=== PATIENT | female | born 1930 | race African-American/Black ===

== ENCOUNTER 2017-04-21 10:29 | Inpatient (IN) | payer MEDICARE, MEDICAID ==
[~2017-04-21] VITALS: Ht 149.9 cm; Wt 45.4 kg
[~2017-04-21 10:29] MED LIST: AMLODIPINE BESYL5 MG ORAL; COLACE100 MG ORAL; CRANBERRY450 M4 PO; Cyproheptadine Hcl ORAL; DONEPEZIL PO; DULCOLAX10 MG RC; MILK OF MA400 MG/51 ORAL; NAMENDA10 MG ORAL
[2017-04-21] MEDS ORDERED: Pantoprazole Inj IV ONE (11:00)
[2017-04-21 11:34] LABS: BASOPHILS % (AUTO) 2.3 % (0.0-2.0); EOSINOPHILS % (AUTO) 4.4 % (0.0-3.0); HEMATOCRIT 41.6 % (37.0-47.0); HEMOGLOBIN 13.1 G/DL (12.0-16.0); LYMPHOCYTES % (AUTO) 38.3 % (20.0-45.0); MEAN CORPUSCULAR VOLUME 95 FL (80-99); MONOCYTES % (AUTO) 7.7 % (1.0-10.0); NEUTROPHILS % (AUTO) 47.3 % (45.0-75.0); PLATELET COUNT 266 K/UL (150-450); RED BLOOD COUNT 4.38 M/UL (4.20-5.40); RED CELL DISTRIBUTION WIDTH 12.9 % (11.6-14.8)
[2017-04-21 11:58] LABS: ANION GAP 5 mmol/L (5-15); BLOOD UREA NITROGEN 13 mg/dL (7-18); CALCIUM 8.1 MG/DL (8.5-10.1); CARBON DIOXIDE 32 MMOL/L (21-32); CHLORIDE 104 MMOL/L (98-107); CREATININE 0.7 MG/DL (0.55-1.30); SODIUM 141 MMOL/L (136-145)
[2017-04-21 12:02] LABS: ALANINE AMINOTRANSFERASE 18 U/L (12-78); ALBUMIN 3.5 G/DL (3.4-5.0); ALBUMIN/GLOBULIN RATIO 0.8 (1.0-2.7); ALKALINE PHOSPHATASE 112 U/L (46-116); ASPARTATE AMINO TRANSFERASE 33 U/L (15-37); BILIRUBIN,TOTAL 0.4 MG/DL (0.2-1.0)
[2017-04-21 12:05] VITALS: BP 115/78
--- NOTE | 2017-04-21 14:25 | Emergency Room Report ---
History of Present Illness General Chief Complaint: General Complaint Source: Patient, EMS Present Illness HPI 86-year-old female presents to ED for evaluation. Per EMS patient noted have blood in stool x1 day. Patient denies any abdominal pain. Denies any fevers chills. Denies chest pain or shortness of breath. No aggravating relieving factors. Denies any other associated symptoms Allergies: Coded Allergies: No Known Allergies (Verified , NONE, 09/19/05) Patient History Past Medical History: COPD Past Surgical History: none Pertinent Family History: none Social History: Denies: smoking, alcohol use, drug use Now: No Immunizations: UTD Reviewed Nursing Documentation: PMH: Agreed, PSxH: Agreed Nursing Documentation-PMH Hx COPD: Yes Hx Cancer: No Hx Neurological Problems: Yes Hx Dementia: Yes Hx Weakness: Yes Review of Systems All Other Systems: negative except mentioned in HPI Physical Exam Vital Signs Date Time Temp Pulse Resp B/P (MAP) Pulse Ox O2 Delivery O2 Flow Rate FiO2 04/21/17 10:30 97.2 73 20 115/78 96 Nasal Cannula 2.0 Sp02 EP Interpretation: reviewed, normal General Appearance: no apparent distress, alert, GCS 15, non-toxic Head: normocephalic, atraumatic Eyes: bilateral eye normal inspection, bilateral eye PERRL ENT: hearing grossly normal, normal pharynx, no angioedema, normal voice Neck: full range of motion, supple/symm/no masses Respiratory: chest non-tender, lungs clear, normal breath sounds, speaking full sentences Cardiovascular #1: regular rate, rhythm, no edema Cardiovascular #2: 2+ carotid (R), 2+ carotid (L), 2+ radial (R), 2+ radial (L) , 2+ dorsalis pedis (R), 2+ dorsalis pedis (L) Gastrointestinal: normal bowel sounds, non tender, soft, non-distended, no guarding, no rebound Rectal: deferred Genitourinary: normal inspection, no CVA tenderness Musculoskeletal: back normal, gait/station normal, normal range of motion, non- tender Neurologic: alert, oriented x3, responsive, motor strength/tone normal, sensory intact, speech normal Psychiatric: judgement/insight normal, memory normal, mood/affect normal, no suicidal/homicidal ideation Reflexes: 3+ bicep (R), 3+ bicep (L), 3+ tricep (R), 3+ tricep (L), 3+ knee (R) , 3+ knee (L) Skin: normal color, no rash, warm/dry, well hydrated Lymphatic: no adenopathy Medical Decision Making Diagnostic Impression: Primary Impression: LGI bleed ER Course Hospital Course 86-year-old F presents to ED with rectal bleeding Differential diagnoses include: UGIB, LGIB, hemorrhoids Clinical course Patient placed on stretcher. radiation monitor. After initial history and physical I ordered labs, IV fluids given protonix Labs - no leukocytosis, Hb/Hct stable. electrolytes ok. UA unremarkable Case discussed with Dr. Zamora and he agreed to accept the patient to his service for further care and support I feel this is a highly complex case requiring extensive working including EKG/ Rhythm strip, Xray/CT/US, Blood/urine lab work, repeat exams while in ED, and administration of strong opiates/narcotics for pain control, admission to hospital or close patient follow up. Diagnosis - LGIB Patient admitted to floor in serious condition Labs Test 04/21/17 11:17 White Blood Count 4.0 K/UL (4.8-10.8) Red Blood Count 4.38 M/UL (4.20-5.40) Hemoglobin 13.1 G/DL (12.0-16.0) Hematocrit 41.6 % (37.0-47.0) Mean Corpuscular Volume 95 FL (80-99) Mean Corpuscular Hemoglobin 29.9 PG (27.0-31.0) Mean Corpuscular Hemoglobin Concent 31.4 G/DL (32.0-36.0) Red Cell Distribution Width 12.9 % (11.6-14.8) Platelet Count 266 K/UL (150-450) Mean Platelet Volume 6.1 FL (6.5-10.1) Neutrophils (%) (Auto) 47.3 % (45.0-75.0) Lymphocytes (%) (Auto) 38.3 % (20.0-45.0) Monocytes (%) (Auto) 7.7 % (1.0-10.0) Eosinophils (%) (Auto) 4.4 % (0.0-3.0) Basophils (%) (Auto) 2.3 % (0.0-2.0) Prothrombin Time 10.7 SEC (9.30-11.50) Prothromb Time International Ratio 1.0 (0.9-1.1) Activated Partial Thromboplast Time 27 SEC (23-33) Sodium Level 141 MMOL/L (136-145) Potassium Level 4.0 MMOL/L (3.5-5.1) Chloride Level 104 MMOL/L (98-107) Carbon Dioxide Level 32 MMOL/L (21-32) Anion Gap 5 mmol/L (5-15) Blood Urea Nitrogen 13 mg/dL (7-18) Creatinine 0.7 MG/DL (0.55-1.30) Estimat Glomerular Filtration Rate mL/min (>60) Glucose Level 88 MG/DL (74-106) Calcium Level 8.1 MG/DL (8.5-10.1) Total Bilirubin 0.4 MG/DL (0.2-1.0) Aspartate Amino Transf (AST/SGOT) 33 U/L (15-37) Alanine Aminotransferase (ALT/SGPT) 18 U/L (12-78) Alkaline Phosphatase 112 U/L (46-116) Troponin I 0.009 ng/mL (0.000-0.056) Total Protein 8.1 G/DL (6.4-8.2) Albumin 3.5 G/DL (3.4-5.0) Globulin 4.6 g/dL Albumin/Globulin Ratio 0.8 (1.0-2.7) Lipase 345 U/L (73-393) EKG Diagnostic Results Rate: normal Rhythm: NSR ST Segments: no acute changes ASA given to the pt in ED: No Rhythm Strip Diag. Results EP Interpretation: yes Rhythm: NSR, no PVC's, no ectopy Last Vital Signs Date Time Temp Pulse Resp B/P (MAP) Pulse Ox O2 Delivery O2 Flow Rate FiO2 04/21/17 10:30 97.2 73 20 115/78 96 Nasal Cannula 2.0 Status: improved Condition: Serious Referrals: Kota Zamora MD (PCP) LAITH BLAIR M.D. Apr 21, 2017 14:25
[2017-04-21 16:31] VITALS: BP 157/81
--- NOTE | 2017-04-21 17:19 | GI Initial Consult Note ---
Didi Huizar N.PRic 04/21/17 1719: History of Present Illness General Date patient seen: Apr 21, 2017 Time patient seen: 11:00 Reason for Hospitalization: General Complaint Referring physician: AHSAN BO Reason for Consultation: LGIB Present Illness HPI 86-year-old female presents to ED for evaluation. Per EMS patient noted have blood in stool x1 day. Patient denies any abdominal pain. Denies any fevers chills. Denies chest pain or shortness of breath. No aggravating relieving factors. Denies any other associated symptoms. GI consulted for LGIB. HPI noted above. Pt seen in ED, awake A&O NAD with no active s/sx of N/V/D. Patient is unaware if she had any rectal bleeding. Denies any abdominal pain at this time. States she had a colonoscopy performed at [facility]. No other history could be obtained at this time. CBC, LFTs unremarkable. Home Meds Active Scripts [Cyproheptadine Hcl] 4 MG TAB No Conflict Check, 4 MG ORAL THREE TIMES A DAY, # 60 Prov:Augustine (Adrienne)Theodora CHARGE WEIGHER 08/18/15 Reported Medications Mirtazapine* (REMERON*) 15 Mg Tablet, 7.5 MG ORAL BEDTIME, TAB 04/21/17 [donapezil hcl] 5 TAB No Conflict Check, 5 MG PO DAILY 08/15/15 Memantine Hcl* (NAMENDA*) 10 Mg Tablet, 10 MG ORAL DAILY, TAB 08/15/15 Magnesium Hydroxide* (MILK OF MAGNESIA*) 400 Mg/5 Ml Oral.susp, 30 ML ORAL DAILY , ML 08/15/15 Cranberry Fruit Concentrate (CRANBERRY) 450 Mg Capsule, 450 MG PO, CAP 08/15/15 Docusate Sodium* (COLACE*) 100 Mg Capsule, 100 MG ORAL DAILY, CAP 08/15/15 Bisacodyl (DULCOLAX) 10 Mg Supp.rect, 10 MG RC, SUPP 08/15/15 Amlodipine Besylate* (AMLODIPINE BESYLATE*) 5 Mg Tablet, 5 MG ORAL DAILY, TAB 08/15/15 Med list reviewed/reconciled: Yes Allergies: Coded Allergies: No Known Allergies (Verified , NONE, 09/19/05) Patient History Limited by: medical condition History Provided By: Patient, Medical Record PMH Narrative Past Medical History: COPD Past Surgical History: none Pertinent Family History: none Social History: Denies: smoking, alcohol use, drug use Now: No Immunizations: UTD Reviewed Nursing Documentation: PMH: Agreed, PSxH: Agreed Nursing Documentation-PMH Hx COPD: Yes Hx Cancer: No Hx Neurological Problems: Yes Hx Dementia: Yes Hx Weakness: Yes Social History: Denies: smoking, alcohol use, drug use, other Review of Systems All Other Systems: negative except mentioned in HPI Physical Exam Vital Signs Date Time Temp Pulse Resp B/P (MAP) Pulse Ox O2 Delivery O2 Flow Rate FiO2 04/21/17 10:30 97.2 73 20 115/78 96 Nasal Cannula 2.0 Sp02 EP Interpretation: reviewed, normal Labs Laboratory Tests Test 04/21/17 11:17 White Blood Count 4.0 K/UL (4.8-10.8) L Red Blood Count 4.38 M/UL (4.20-5.40) Hemoglobin 13.1 G/DL (12.0-16.0) Hematocrit 41.6 % (37.0-47.0) Mean Corpuscular Volume 95 FL (80-99) Mean Corpuscular Hemoglobin 29.9 PG (27.0-31.0) Mean Corpuscular Hemoglobin Concent 31.4 G/DL (32.0-36.0) L Red Cell Distribution Width 12.9 % (11.6-14.8) Platelet Count 266 K/UL (150-450) Mean Platelet Volume 6.1 FL (6.5-10.1) L Neutrophils (%) (Auto) 47.3 % (45.0-75.0) Lymphocytes (%) (Auto) 38.3 % (20.0-45.0) Monocytes (%) (Auto) 7.7 % (1.0-10.0) Eosinophils (%) (Auto) 4.4 % (0.0-3.0) H Basophils (%) (Auto) 2.3 % (0.0-2.0) H Prothrombin Time 10.7 SEC (9.30-11.50) Prothromb Time International Ratio 1.0 (0.9-1.1) Activated Partial Thromboplast Time 27 SEC (23-33) Sodium Level 141 MMOL/L (136-145) Potassium Level 4.0 MMOL/L (3.5-5.1) Chloride Level 104 MMOL/L (98-107) Carbon Dioxide Level 32 MMOL/L (21-32) Anion Gap 5 mmol/L (5-15) Blood Urea Nitrogen 13 mg/dL (7-18) Creatinine 0.7 MG/DL (0.55-1.30) Estimat Glomerular Filtration Rate mL/min (>60) Glucose Level 88 MG/DL (74-106) Calcium Level 8.1 MG/DL (8.5-10.1) L Total Bilirubin 0.4 MG/DL (0.2-1.0) Aspartate Amino Transf (AST/SGOT) 33 U/L (15-37) Alanine Aminotransferase (ALT/SGPT) 18 U/L (12-78) Alkaline Phosphatase 112 U/L (46-116) Troponin I 0.009 ng/mL (0.000-0.056) Total Protein 8.1 G/DL (6.4-8.2) Albumin 3.5 G/DL (3.4-5.0) Globulin 4.6 g/dL Albumin/Globulin Ratio 0.8 (1.0-2.7) L Lipase 345 U/L (73-393) General Appearance: well appearing, no apparent distress, alert, thin Head: normocephalic EENT: PERRL/EOMI, normal ENT inspection Neck: supple Respiratory: normal breath sounds, no respiratory distress Cardiovascular: normal rate Gastrointestinal: normal inspection, non tender, soft, normal bowel sounds, non -distended Genitourinary: no CVA tenderness Musculoskeletal: normal inspection, back normal Neurologic: normal inspection, alert, responsive Skin: normal inspection, normal color, no rash, warm/dry, palpation normal, well hydrated Lymphatic: normal inspection, no adenopathy GI: Plan Problems: (1) LGI bleed (2) Severe protein-calorie malnutrition (3) Dehydration (4) Episode of generalized weakness Plan defer GI procedures at this time stable H&H, prn transfusions OB stool r/o GI bleed start bowel regime >> colace + miralax anusol HC prn ok to advance diet electrolyte correction H2B prophylaxis fu labs Discussed with Dr. Patel. Thank you for this patient referral, we will follow. DE PATEL 04/22/17 1152: History of Present Illness General Reason for Hospitalization: General Complaint Present Illness Home Meds Active Scripts [Cyproheptadine Hcl] 4 MG TAB No Conflict Check, 4 MG ORAL THREE TIMES A DAY, # 60 Prov:Augustine (Adrienne)Theodora CHARGE WEIGHER 08/18/15 Reported Medications Mirtazapine* (REMERON*) 15 Mg Tablet, 7.5 MG ORAL BEDTIME, TAB 04/21/17 [donapezil hcl] 5 TAB No Conflict Check, 5 MG PO DAILY 08/15/15 Memantine Hcl* (NAMENDA*) 10 Mg Tablet, 10 MG ORAL DAILY, TAB 08/15/15 Magnesium Hydroxide* (MILK OF MAGNESIA*) 400 Mg/5 Ml Oral.susp, 30 ML ORAL DAILY , ML 08/15/15 Cranberry Fruit Concentrate (CRANBERRY) 450 Mg Capsule, 450 MG PO, CAP 08/15/15 Docusate Sodium* (COLACE*) 100 Mg Capsule, 100 MG ORAL DAILY, CAP 08/15/15 Bisacodyl (DULCOLAX) 10 Mg Supp.rect, 10 MG RC, SUPP 08/15/15 Amlodipine Besylate* (AMLODIPINE BESYLATE*) 5 Mg Tablet, 5 MG ORAL DAILY, TAB 08/15/15 Allergies: Coded Allergies: No Known Allergies (Verified , NONE, 09/19/05) GI: Plan Plan The patient was seen and examined at bedside and all new and available data was reviewed in the patients chart. I agree with the above findings, impression and plan. (Patient seen earlier today. Signature stamp does not reflect patient encounter time.). - MD Gaye [facility] N.PRic Apr 21, 2017 17:19 DE PATEL Apr 22, 2017 11:52
[2017-04-21] MEDS ORDERED: MIRTAZAPINE15 MG ORAL (17:49)
[2017-04-21] MEDS ORDERED: NAMENDA10 MG ORAL (17:49)
[2017-04-21] MEDS: Docusate 100mg cap ORAL SCH (18:49)
[2017-04-21 20:00] VITALS: BP 145/78
[2017-04-21] MEDS: Miralax 17gm pkt ORAL SCH (21:00)
[2017-04-21] MEDS: Donepezil 5mg Tab ORAL SCH (21:00)
[2017-04-22] VITALS: BP 139/83
[2017-04-22 04:00] VITALS: BP 155/94
[2017-04-22 07:31] LABS: ANION GAP 5 mmol/L (5-15); BLOOD UREA NITROGEN 11 mg/dL (7-18); CALCIUM 8.3 MG/DL (8.5-10.1); CARBON DIOXIDE 33 MMOL/L (21-32); CHLORIDE 106 MMOL/L (98-107); CREATININE 0.7 MG/DL (0.55-1.30); POTASSIUM 3.9 MMOL/L (3.5-5.1); SODIUM 144 MMOL/L (136-145)
[2017-04-22 07:57] LABS: BASOPHILS % (AUTO) 2.1 % (0.0-2.0); HEMATOCRIT 42.5 % (37.0-47.0); HEMOGLOBIN 13.3 G/DL (12.0-16.0); MEAN CORPUSCULAR VOLUME 96 FL (80-99); MONOCYTES % (AUTO) 10.4 % (1.0-10.0); NEUTROPHILS % (AUTO) 27.6 % (45.0-75.0); PLATELET COUNT 278 K/UL (150-450); RED BLOOD COUNT 4.43 M/UL (4.20-5.40); RED CELL DISTRIBUTION WIDTH 13.1 % (11.6-14.8); WHITE BLOOD COUNT 3.9 K/UL (4.8-10.8)
[2017-04-22 08:00] VITALS: BP 156/82
[2017-04-22] MEDS: Milk of Magnesia 30ml Ud ORAL SCH (08:49)
[2017-04-22] MEDS: Docusate 100mg cap ORAL SCH ×3 (08:49→17:08)
[2017-04-22] MEDS: Memantine 10mg tab ORAL SCH (08:49)
[2017-04-22] MEDS ORDERED: Docusate 100mg cap ORAL SCH (09:00)
[2017-04-22 11:53] VITALS: BP 129/71
--- NOTE | 2017-04-22 14:44 | GI Progress Note ---
Assessment/Plan Problems: (1) Episode of generalized weakness ICD Codes: R53.1 - Weakness SNOMED: 47872608 (2) Severe protein-calorie malnutrition ICD Codes: E43 - Unspecified severe protein-calorie malnutrition SNOMED: 031865173 (3) Dehydration ICD Codes: E86.0 - Dehydration SNOMED: 93934558 (4) At high risk for aspiration ICD Codes: Z91.89 - Other specified personal risk factors, not elsewhere classified SNOMED: 992797582 (5) Frailty ICD Codes: R54 - Age-related physical debility SNOMED: 061792273 Status: stable Status Narrative Discussed with Dr. Liu. Assessment/Plan defer GI procedures at this time stable H&H, prn transfusions OB stool r/o GI bleed start bowel regime >> colace + miralax anusol HC prn ok to advance diet electrolyte correction H2B prophylaxis OT evaluation fu labs The patient was seen and examined at bedside and all new and available data was reviewed in the patients chart. I agree with the above findings, impression and plan. (Patient seen earlier today. Signature stamp does not reflect patient encounter time.). - Juli Liu MD Subjective Gastrointestinal/Abdominal: Reports: no symptoms Subjective no rectal bleeding noted Objective Last 24 Hour Vital Signs Date Time Temp Pulse Resp B/P (MAP) Pulse Ox O2 Delivery O2 Flow Rate FiO2 04/22/17 11:53 97.6 87 19 129/71 100 04/22/17 08:50 105 156/82 04/22/17 08:00 97.9 105 20 156/82 95 04/22/17 04:00 97.5 81 20 155/94 99 04/22/17 00:00 97.2 72 20 139/83 100 04/21/17 20:00 97.3 83 19 145/78 98 04/21/17 16:31 97.5 88 21 157/81 98 04/21/17 16:15 97.2 20 115/78 96 Nasal Cannula 2.0 Intake and Output 04/21/17 04/22/17 19:00 07:00 Intake Total 0 ml 780 ml Balance 0 ml 780 ml Intake Oral 0 ml IV Total 780 ml # Voids 1 Laboratory Tests Test 04/22/17 06:10 White Blood Count 3.9 K/UL (4.8-10.8) L Red Blood Count 4.43 M/UL (4.20-5.40) Hemoglobin 13.3 G/DL (12.0-16.0) Hematocrit 42.5 % (37.0-47.0) Mean Corpuscular Volume 96 FL (80-99) Mean Corpuscular Hemoglobin 30.0 PG (27.0-31.0) Mean Corpuscular Hemoglobin Concent 31.3 G/DL (32.0-36.0) L Red Cell Distribution Width 13.1 % (11.6-14.8) Platelet Count 278 K/UL (150-450) Mean Platelet Volume 5.9 FL (6.5-10.1) L Neutrophils (%) (Auto) 27.6 % (45.0-75.0) L Lymphocytes (%) (Auto) 54.0 % (20.0-45.0) H Monocytes (%) (Auto) 10.4 % (1.0-10.0) H Eosinophils (%) (Auto) 6.0 % (0.0-3.0) H Basophils (%) (Auto) 2.1 % (0.0-2.0) H Sodium Level 144 MMOL/L (136-145) Potassium Level 3.9 MMOL/L (3.5-5.1) Chloride Level 106 MMOL/L (98-107) Carbon Dioxide Level 33 MMOL/L (21-32) H Anion Gap 5 mmol/L (5-15) Blood Urea Nitrogen 11 mg/dL (7-18) Creatinine 0.7 MG/DL (0.55-1.30) Estimat Glomerular Filtration Rate mL/min (>60) Glucose Level 91 MG/DL (74-106) Calcium Level 8.3 MG/DL (8.5-10.1) L Height (Feet): 4 Height (Inches): 11.00 Weight (Pounds): 100 General Appearance: WD/WN, no apparent distress, alert, thin Cardiovascular: normal rate Respiratory/Chest: normal breath sounds, no respiratory distress Abdominal Exam: normal bowel sounds, non tender, soft Extremities: normal range of motion, non-tender Didi Huizar N.P. Apr 22, 2017 14:44 DE LIU Apr 24, 2017 07:20
[2017-04-22 15:55] VITALS: BP 150/86
--- NOTE | 2017-04-22 17:57 | Cardiology Report ---
APPROVED REPORT EKG Measurement Heart [id number] Normal sinus rhythm Left axis deviation Right bundle branch block Abnormal ECG
[2017-04-22 19:44] VITALS: BP 91/70
[2017-04-22] MEDS: Donepezil 5mg Tab ORAL SCH (20:20)
[2017-04-22] MEDS: Miralax 17gm pkt ORAL SCH (20:21)
--- NOTE | 2017-04-22 20:58 | General Progress Note ---
Assessment/Plan Problem List: (1) LGI bleed ICD Codes: K92.2 - Gastrointestinal hemorrhage, unspecified SNOMED: 47549962 (2) Frailty ICD Codes: R54 - Age-related physical debility SNOMED: 635168392 (3) Episode of generalized weakness ICD Codes: R53.1 - Weakness SNOMED: 25858514 (4) Severe protein-calorie malnutrition ICD Codes: E43 - Unspecified severe protein-calorie malnutrition SNOMED: 495894278 Status: progressing Assessment/Plan gi bleeding stable h/h endoscopy per gi moniter for bleeding Subjective ROS Limited/Unobtainable: Yes Allergies: Coded Allergies: No Known Allergies (Verified , NONE, 09/19/05) Objective Last 24 Hour Vital Signs Date Time Temp Pulse Resp B/P (MAP) Pulse Ox O2 Delivery O2 Flow Rate FiO2 04/22/17 19:44 97.5 67 19 91/70 98 Room Air 04/22/17 15:55 97.9 86 19 150/86 99 04/22/17 11:53 97.6 87 19 129/71 100 04/22/17 08:50 105 156/82 04/22/17 08:00 97.9 105 20 156/82 95 04/22/17 04:00 97.5 81 20 155/94 99 04/22/17 00:00 97.2 72 20 139/83 100 Intake and Output 04/21/17 04/22/17 19:00 07:00 Intake Total 0 ml 780 ml Balance 0 ml 780 ml Intake Oral 0 ml IV Total 780 ml # Voids 1 Laboratory Tests 04/22/17 06:10: White Blood Count 3.9L, Red Blood Count 4.43, Hemoglobin 13.3, Hematocrit 42.5, Mean Corpuscular Volume 96, Mean Corpuscular Hemoglobin 30.0, Mean Corpuscular Hemoglobin Concent 31.3L, Red Cell Distribution Width 13.1, Platelet Count 278, Mean Platelet Volume 5.9L, Neutrophils (%) (Auto) 27.6L, Lymphocytes (%) (Auto) 54.0H, Monocytes (%) (Auto) 10.4H, Eosinophils (%) (Auto) 6.0H, Basophils (%) ( Auto) 2.1H, Sodium Level 144, Potassium Level 3.9, Chloride Level 106, Carbon Dioxide Level 33H, Anion Gap 5, Blood Urea Nitrogen 11, Creatinine 0.7, Estimat Glomerular Filtration Rate , Glucose Level 91, Calcium Level 8.3L Height (Feet): 4 Height (Inches): 11.00 Weight (Pounds): 100 Respiratory/Chest: lungs clear Abdomen: soft Kota Zamora MD Apr 22, 2017 20:58
[2017-04-23] VITALS (7 sets, daily range): BP systolic 118–164; BP diastolic 60–110
[2017-04-23 07:24] LABS: BASOPHILS % (AUTO) 2.1 % (0.0-2.0); EOSINOPHILS % (AUTO) 7.9 % (0.0-3.0); HEMATOCRIT 36.6 % (37.0-47.0); HEMOGLOBIN 11.3 G/DL (12.0-16.0); LYMPHOCYTES % (AUTO) 49.5 % (20.0-45.0); MEAN CORPUSCULAR VOLUME 96 FL (80-99); MONOCYTES % (AUTO) 14.6 % (1.0-10.0); NEUTROPHILS % (AUTO) 25.9 % (45.0-75.0); PLATELET COUNT 229 K/UL (150-450); RED BLOOD COUNT 3.83 M/UL (4.20-5.40); RED CELL DISTRIBUTION WIDTH 13.1 % (11.6-14.8); WHITE BLOOD COUNT 3.7 K/UL (4.8-10.8)
[2017-04-23 07:33] LABS: ANION GAP 3 mmol/L (5-15); BLOOD UREA NITROGEN 13 mg/dL (7-18); CALCIUM 8.9 MG/DL (8.5-10.1); CARBON DIOXIDE 34 MMOL/L (21-32); CHLORIDE 107 MMOL/L (98-107); CREATININE 0.7 MG/DL (0.55-1.30); POTASSIUM 4.4 MMOL/L (3.5-5.1); SODIUM 144 MMOL/L (136-145)
[2017-04-23] MEDS: Docusate 100mg cap ORAL SCH ×3 (08:47→17:12)
[2017-04-23] MEDS: Memantine 10mg tab ORAL SCH (08:48)
[2017-04-23] MEDS: Milk of Magnesia 30ml Ud ORAL SCH (09:03)
--- NOTE | 2017-04-23 09:42 | History and Physical Report ---
DATE OF ADMISSION: 04/21/2017 NOTE: POOR AUDIO HISTORY OF PRESENT ILLNESS: The patient is admitted for rectal bleeding and history of . The patient is a poor historian and has advanced dementia. abdominal pain. Denies nausea, vomiting . Denies shortness of breath. Denies cough. Denies chills. PAST MEDICAL HISTORY: Dementia, hypertension, leg edema, constipation, mood disorder, . PAST SURGICAL HISTORY: . MEDICATIONS: , Colace, Namenda, mirtazapine, and temazepam. FAMILY HISTORY: Noncontributory. SOCIAL HISTORY: Denies history of smoking, alcohol, or illicit drugs. REVIEW OF SYSTEMS: HEENT: Denies headaches. RESPIRATORY: Denies shortness of breath. Denies cough. CARDIOVASCULAR: Denies chest pain. GASTROINTESTINAL: Denies nausea, vomiting, or diarrhea. EXTREMITIES: Denies , however, she is a very poor historian, cannot history. CENTRAL NERVOUS SYSTEM: No change in vision or speech pattern. PHYSICAL EXAMINATION: VITAL SIGNS: Basically, temperature is 97.2, pulse is 73, and blood pressure 116/78. HEENT: PERRLA. NECK: Supple. No lymphadenopathy. CHEST: Clear to auscultation. GASTROINTESTINAL: Soft, nontender, and nondistended. No organomegaly. EXTREMITIES: No edema. Moves all four extremities. NEUROLOGIC: Sensory is intact to light touch. Reflexes are equal on both sides. LABORATORY DATA: WBC of 4, hemoglobin of 13.1, and platelets 266. Sodium 141, potassium 4, BUN of 13, and creatinine 0.7. ASSESSMENT AND PLAN: Upper gastrointestinal bleeding. I have asked Dr. Liu to see the patient for the above-mentioned diagnosis and treatment. I have asked mild dehydration treatment. Kota Zamora M.D. DR: LUIS JOB#: [id number] CC:
--- NOTE | 2017-04-23 14:30 | GI Progress Note ---
Assessment/Plan Problems: (1) Episode of generalized weakness ICD Codes: R53.1 - Weakness SNOMED: 67587161 (2) Severe protein-calorie malnutrition ICD Codes: E43 - Unspecified severe protein-calorie malnutrition SNOMED: 052675114 (3) Dehydration ICD Codes: E86.0 - Dehydration SNOMED: 68579899 (4) At high risk for aspiration ICD Codes: Z91.89 - Other specified personal risk factors, not elsewhere classified SNOMED: 933603488 (5) Frailty ICD Codes: R54 - Age-related physical debility SNOMED: 063738884 Status: stable Status Narrative Discussed with Dr. Liu. Assessment/Plan defer GI procedures at this time stable H&H, prn transfusions OB stool r/o GI bleed start bowel regime >> colace + miralax anusol HC prn ok to advance diet electrolyte correction H2B prophylaxis PT/OT evaluation fu labs The patient was seen and examined at bedside and all new and available data was reviewed in the patients chart. I agree with the above findings, impression and plan. (Patient seen earlier today. Signature stamp does not reflect patient encounter time.). - Juli Liu MD Subjective Subjective no rectal bleeding noted Objective Last 24 Hour Vital Signs Date Time Temp Pulse Resp B/P (MAP) Pulse Ox O2 Delivery O2 Flow Rate FiO2 04/23/17 12:00 95.5 62 18 127/62 93 04/23/17 08:48 72 131/79 04/23/17 08:00 95.7 69 18 135/60 93 04/23/17 04:10 149/83 Nasal Cannula 2.0 04/23/17 03:38 98.1 70 18 164/110 90 Nasal Cannula 04/23/17 00:00 Nasal Cannula 2.0 04/23/17 00:00 97.9 64 18 140/63 98 04/22/17 20:00 Nasal Cannula 2.0 04/22/17 19:44 97.5 67 19 91/70 98 Room Air 04/22/17 15:55 97.9 86 19 150/86 99 Intake and Output 04/22/17 04/23/17 19:00 07:00 Intake Total 755 ml 650 ml Balance 755 ml 650 ml Intake Oral 690 ml IV Total 65 ml 650 ml # Voids 3 1 # Bowel Movements 1 Laboratory Tests Test 04/23/17 05:05 White Blood Count 3.7 K/UL (4.8-10.8) L Red Blood Count 3.83 M/UL (4.20-5.40) L Hemoglobin 11.3 G/DL (12.0-16.0) L Hematocrit 36.6 % (37.0-47.0) L Mean Corpuscular Volume 96 FL (80-99) Mean Corpuscular Hemoglobin 29.6 PG (27.0-31.0) Mean Corpuscular Hemoglobin Concent 31.0 G/DL (32.0-36.0) L Red Cell Distribution Width 13.1 % (11.6-14.8) Platelet Count 229 K/UL (150-450) Mean Platelet Volume 6.0 FL (6.5-10.1) L Neutrophils (%) (Auto) 25.9 % (45.0-75.0) L Lymphocytes (%) (Auto) 49.5 % (20.0-45.0) H Monocytes (%) (Auto) 14.6 % (1.0-10.0) H Eosinophils (%) (Auto) 7.9 % (0.0-3.0) H Basophils (%) (Auto) 2.1 % (0.0-2.0) H Sodium Level 144 MMOL/L (136-145) Potassium Level 4.4 MMOL/L (3.5-5.1) Chloride Level 107 MMOL/L (98-107) Carbon Dioxide Level 34 MMOL/L (21-32) H Anion Gap 3 mmol/L (5-15) L Blood Urea Nitrogen 13 mg/dL (7-18) Creatinine 0.7 MG/DL (0.55-1.30) Estimat Glomerular Filtration Rate mL/min (>60) Glucose Level 79 MG/DL (74-106) Calcium Level 8.9 MG/DL (8.5-10.1) Height (Feet): 4 Height (Inches): 11.00 Weight (Pounds): 100 General Appearance: no apparent distress, alert, thin Cardiovascular: normal rate Respiratory/Chest: normal breath sounds, no respiratory distress Abdominal Exam: normal bowel sounds, non tender, soft Didi Huizar N.PRic Apr 23, 2017 14:29 DE LIU Apr 24, 2017 07:53
[2017-04-23] MEDS ORDERED: 1/2 NS 1000ml IV ONE (15:29)
--- NOTE | 2017-04-23 20:43 | General Progress Note ---
Assessment/Plan Problem List: (1) LGI bleed ICD Codes: K92.2 - Gastrointestinal hemorrhage, unspecified SNOMED: 43244930 (2) Frailty ICD Codes: R54 - Age-related physical debility SNOMED: 867315916 (3) Episode of generalized weakness ICD Codes: R53.1 - Weakness SNOMED: 18947743 (4) Severe protein-calorie malnutrition ICD Codes: E43 - Unspecified severe protein-calorie malnutrition SNOMED: 316195173 Status: progressing Assessment/Plan gi bleeding stable h/h afebrile will discuss w gi re findings Subjective ROS Limited/Unobtainable: Yes Allergies: Coded Allergies: No Known Allergies (Verified , NONE, 09/19/05) Objective Last 24 Hour Vital Signs Date Time Temp Pulse Resp B/P (MAP) Pulse Ox O2 Delivery O2 Flow Rate FiO2 04/23/17 16:00 96.6 81 18 118/73 91 04/23/17 12:00 95.5 62 18 127/62 93 04/23/17 08:48 72 131/79 04/23/17 08:00 95.7 69 18 135/60 93 04/23/17 04:10 149/83 Nasal Cannula 2.0 04/23/17 03:38 98.1 70 18 164/110 90 Nasal Cannula 04/23/17 00:00 Nasal Cannula 2.0 04/23/17 00:00 97.9 64 18 140/63 98 Intake and Output 04/22/17 04/23/17 19:00 07:00 Intake Total 755 ml 715 ml Balance 755 ml 715 ml Intake Oral 690 ml IV Total 65 ml 715 ml # Voids 3 1 # Bowel Movements 1 Laboratory Tests 04/23/17 05:05: White Blood Count 3.7L, Red Blood Count 3.83L, Hemoglobin 11.3L, Hematocrit 36.6L, Mean Corpuscular Volume 96, Mean Corpuscular Hemoglobin 29.6, Mean Corpuscular Hemoglobin Concent 31.0L, Red Cell Distribution Width 13.1, Platelet Count 229, Mean Platelet Volume 6.0L, Neutrophils (%) (Auto) 25.9L, Lymphocytes (%) (Auto) 49.5H, Monocytes (%) (Auto) 14.6H, Eosinophils (%) (Auto ) 7.9H, Basophils (%) (Auto) 2.1H, Sodium Level 144, Potassium Level 4.4, Chloride Level 107, Carbon Dioxide Level 34H, Anion Gap 3L, Blood Urea Nitrogen 13, Creatinine 0.7, Estimat Glomerular Filtration Rate , Glucose Level 79, Calcium Level 8.9 Height (Feet): 4 Height (Inches): 11.00 Weight (Pounds): 100 Cardiovascular: regular rhythm Respiratory/Chest: normal breath sounds Kota Zamora MD Apr 23, 2017 20:43
[2017-04-23] MEDS: Miralax 17gm pkt ORAL SCH (21:00)
[2017-04-23] MEDS: Donepezil 5mg Tab ORAL SCH (21:32)
[2017-04-24] VITALS: BP 120/48
[2017-04-24 04:00] VITALS: BP 155/74
[2017-04-24 07:32] LABS: BASOPHILS % (AUTO) 2.5 % (0.0-2.0); EOSINOPHILS % (AUTO) 0.8 % (0.0-3.0); HEMATOCRIT 38.1 % (37.0-47.0); HEMOGLOBIN 12.2 G/DL (12.0-16.0); LYMPHOCYTES % (AUTO) 30.7 % (20.0-45.0); MEAN CORPUSCULAR VOLUME 94 FL (80-99); MONOCYTES % (AUTO) 7.8 % (1.0-10.0); NEUTROPHILS % (AUTO) 58.3 % (45.0-75.0); PLATELET COUNT 268 K/UL (150-450); RED BLOOD COUNT 4.03 M/UL (4.20-5.40); WHITE BLOOD COUNT 3.7 K/UL (4.8-10.8)
[2017-04-24 08:00] LABS: ANION GAP 11 mmol/L (5-15); BLOOD UREA NITROGEN 13 mg/dL (7-18); CALCIUM 9.3 MG/DL (8.5-10.1); CARBON DIOXIDE 30 MMOL/L (21-32); CHLORIDE 102 MMOL/L (98-107); CREATININE 0.8 MG/DL (0.55-1.30); POTASSIUM 3.4 MMOL/L (3.5-5.1); SODIUM 143 MMOL/L (136-145)
[2017-04-24] MEDS: Memantine 10mg tab ORAL SCH (08:08)
[2017-04-24] MEDS: Milk of Magnesia 30ml Ud ORAL SCH (08:08)
[2017-04-24 08:09] VITALS: BP 116/59
[2017-04-24] MEDS: Docusate 100mg cap ORAL SCH ×3 (08:09→17:55)
--- NOTE | 2017-04-24 11:34 | Consultation ---
Consult Note Consult Note asked to see for electrolyte imbalance 86-year-old female presents to ED for evaluation. Per EMS patient noted have blood in stool x1 day. Patient denies any abdominal pain. Denies any fevers chills. Denies chest pain or shortness of breath. No aggravating relieving factors. Denies any other associated symptoms Past Medical History: COPD Hx COPD: Yes Hx Neurological Problems: Yes Hx Dementia: Yes Hx Weakness: Yes Assessment/Plan Low K GI Bleed- H&H stable Malnutrition Dehydration HTN Plan: K Supplement DC IV Monitor H&H DC planning MARIANA YODER Apr 24, 2017 11:34
[2017-04-24 12:00] VITALS: BP 148/95
--- NOTE | 2017-04-24 14:14 | GI Progress Note ---
Assessment/Plan Problems: (1) Episode of generalized weakness ICD Codes: R53.1 - Weakness SNOMED: 10991953 (2) Severe protein-calorie malnutrition ICD Codes: E43 - Unspecified severe protein-calorie malnutrition SNOMED: 227231949 (3) Dehydration ICD Codes: E86.0 - Dehydration SNOMED: 92710988 (4) At high risk for aspiration ICD Codes: Z91.89 - Other specified personal risk factors, not elsewhere classified SNOMED: 123985944 (5) Frailty ICD Codes: R54 - Age-related physical debility SNOMED: 752635248 Status: stable Status Narrative Discussed with Dr. Liu. Assessment/Plan Had BM yesterday, no blood noted per RN report defer GI procedures at this time stable H&H OB stool r/o GI bleed start bowel regime >> colace + miralax anusol HC prn ok to advance diet electrolyte correction H2B prophylaxis PT/OT evaluation fu labs dc planning The patient was seen and examined at bedside and all new and available data was reviewed in the patients chart. I agree with the above findings, impression and plan. (Patient seen earlier today. Signature stamp does not reflect patient encounter time.). - Juli Liu MD Subjective Subjective no rectal bleeding noted Objective Last 24 Hour Vital Signs Date Time Temp Pulse Resp B/P (MAP) Pulse Ox O2 Delivery O2 Flow Rate FiO2 04/24/17 08:09 97.9 74 20 116/59 95 04/24/17 08:08 74 116/59 04/24/17 04:00 97.0 94 20 155/74 96 04/24/17 00:00 97.0 98 20 120/48 95 Room Air 04/23/17 20:00 97.0 104 20 143/74 95 Room Air 04/23/17 16:00 96.6 81 18 118/73 91 Intake and Output 04/23/17 04/24/17 19:00 07:00 Intake Total 1015 ml 715 ml Balance 1015 ml 715 ml Intake Oral 430 ml IV Total 585 ml 715 ml # Voids 2 5 # Bowel Movements 3 Laboratory Tests Test 04/24/17 06:20 White Blood Count 3.7 K/UL (4.8-10.8) L Red Blood Count 4.03 M/UL (4.20-5.40) L Hemoglobin 12.2 G/DL (12.0-16.0) Hematocrit 38.1 % (37.0-47.0) Mean Corpuscular Volume 94 FL (80-99) Mean Corpuscular Hemoglobin 30.1 PG (27.0-31.0) Mean Corpuscular Hemoglobin Concent 31.9 G/DL (32.0-36.0) L Red Cell Distribution Width 13.0 % (11.6-14.8) Platelet Count 268 K/UL (150-450) Mean Platelet Volume 5.7 FL (6.5-10.1) L Neutrophils (%) (Auto) 58.3 % (45.0-75.0) Lymphocytes (%) (Auto) 30.7 % (20.0-45.0) Monocytes (%) (Auto) 7.8 % (1.0-10.0) Eosinophils (%) (Auto) 0.8 % (0.0-3.0) Basophils (%) (Auto) 2.5 % (0.0-2.0) H Sodium Level 143 MMOL/L (136-145) Potassium Level 3.4 MMOL/L (3.5-5.1) L Chloride Level 102 MMOL/L (98-107) Carbon Dioxide Level 30 MMOL/L (21-32) Anion Gap 11 mmol/L (5-15) Blood Urea Nitrogen 13 mg/dL (7-18) Creatinine 0.8 MG/DL (0.55-1.30) Estimat Glomerular Filtration Rate mL/min (>60) Glucose Level 137 MG/DL (74-106) H Calcium Level 9.3 MG/DL (8.5-10.1) Height (Feet): 4 Height (Inches): 11.00 Weight (Pounds): 100 General Appearance: WD/WN, no apparent distress, alert, thin Cardiovascular: normal rate Respiratory/Chest: normal breath sounds, no respiratory distress Abdominal Exam: normal bowel sounds, non tender, soft Extremities: normal range of motion, non-tender Didi Huizar N.PRic Apr 24, 2017 14:14 DE LIU Apr 25, 2017 12:06
[2017-04-24 16:00] VITALS: BP 119/59
--- NOTE | 2017-04-24 19:49 | General Progress Note ---
Assessment/Plan Problem List: (1) LGI bleed ICD Codes: K92.2 - Gastrointestinal hemorrhage, unspecified SNOMED: 26043575 (2) Frailty ICD Codes: R54 - Age-related physical debility SNOMED: 225900356 (3) Episode of generalized weakness ICD Codes: R53.1 - Weakness SNOMED: 68372254 (4) Severe protein-calorie malnutrition ICD Codes: E43 - Unspecified severe protein-calorie malnutrition SNOMED: 069781086 Status: progressing Assessment/Plan no gi bleeding stable h/h dc in am to snf Subjective ROS Limited/Unobtainable: Yes Allergies: Coded Allergies: No Known Allergies (Verified , NONE, 09/19/05) Objective Last 24 Hour Vital Signs Date Time Temp Pulse Resp B/P (MAP) Pulse Ox O2 Delivery O2 Flow Rate FiO2 04/24/17 16:00 98.0 93 20 119/59 96 Nasal Cannula 2.0 04/24/17 12:00 97.2 65 20 148/95 98 04/24/17 08:09 97.9 74 20 116/59 95 04/24/17 08:08 74 116/59 04/24/17 04:00 97.0 94 20 155/74 96 04/24/17 00:00 97.0 98 20 120/48 95 Room Air 04/23/17 20:00 97.0 104 20 143/74 95 Room Air Intake and Output 04/23/17 04/24/17 19:00 07:00 Intake Total 1015 ml 715 ml Balance 1015 ml 715 ml Intake Oral 430 ml IV Total 585 ml 715 ml # Voids 2 5 # Bowel Movements 3 Laboratory Tests 04/24/17 06:20: White Blood Count 3.7L, Red Blood Count 4.03L, Hemoglobin 12.2, Hematocrit 38.1 , Mean Corpuscular Volume 94, Mean Corpuscular Hemoglobin 30.1, Mean Corpuscular Hemoglobin Concent 31.9L, Red Cell Distribution Width 13.0, Platelet Count 268, Mean Platelet Volume 5.7L, Neutrophils (%) (Auto) 58.3, Lymphocytes (%) (Auto) 30.7, Monocytes (%) (Auto) 7.8, Eosinophils (%) (Auto) 0.8, Basophils (%) (Auto) 2.5H, Sodium Level 143, Potassium Level 3.4L, Chloride Level 102, Carbon Dioxide Level 30, Anion Gap 11, Blood Urea Nitrogen 13, Creatinine 0.8, Estimat Glomerular Filtration Rate , Glucose Level 137H, Calcium Level 9.3 Height (Feet): 4 Height (Inches): 11.00 Weight (Pounds): 100 Cardiovascular: normal rate Kota Zamora MD Apr 24, 2017 19:49
[2017-04-24 20:00] VITALS: BP 120/60
[2017-04-24] MEDS: Donepezil 5mg Tab ORAL SCH (21:00)
[2017-04-24] MEDS: Miralax 17gm pkt ORAL SCH (21:00)
[2017-04-25] VITALS: BP 141/83
[2017-04-25 04:00] VITALS: BP 132/83
[2017-04-25 07:51] LABS: BASOPHILS % (AUTO) 1.3 % (0.0-2.0); EOSINOPHILS % (AUTO) 5.7 % (0.0-3.0); HEMATOCRIT 36.5 % (37.0-47.0); LYMPHOCYTES % (AUTO) 39.9 % (20.0-45.0); MEAN CORPUSCULAR VOLUME 95 FL (80-99); MONOCYTES % (AUTO) 10.3 % (1.0-10.0); NEUTROPHILS % (AUTO) 42.9 % (45.0-75.0); PLATELET COUNT 251 K/UL (150-450); RED BLOOD COUNT 3.86 M/UL (4.20-5.40); RED CELL DISTRIBUTION WIDTH 12.9 % (11.6-14.8); WHITE BLOOD COUNT 4.1 K/UL (4.8-10.8)
[2017-04-25 07:53] LABS: ANION GAP 6 mmol/L (5-15); BLOOD UREA NITROGEN 17 mg/dL (7-18); CALCIUM 9.1 MG/DL (8.5-10.1); CARBON DIOXIDE 31 MMOL/L (21-32); CHLORIDE 106 MMOL/L (98-107); CREATININE 0.8 MG/DL (0.55-1.30); POTASSIUM 4.5 MMOL/L (3.5-5.1); SODIUM 143 MMOL/L (136-145)
[2017-04-25 08:00] VITALS: BP 138/87
[2017-04-25 08:54] VITALS: BP 138/87
[2017-04-25] MEDS: Docusate 100mg cap ORAL SCH (08:54)
[2017-04-25] MEDS: Milk of Magnesia 30ml Ud ORAL SCH (08:54)
[2017-04-25] MEDS: Memantine 10mg tab ORAL SCH (08:54)
--- NOTE | 2017-04-25 12:55 | GI Progress Note ---
Assessment/Plan Problems: (1) Episode of generalized weakness ICD Codes: R53.1 - Weakness SNOMED: 66005335 (2) Severe protein-calorie malnutrition ICD Codes: E43 - Unspecified severe protein-calorie malnutrition SNOMED: 670612944 (3) Dehydration ICD Codes: E86.0 - Dehydration SNOMED: 62491428 (4) At high risk for aspiration ICD Codes: Z91.89 - Other specified personal risk factors, not elsewhere classified SNOMED: 938286932 (5) Frailty ICD Codes: R54 - Age-related physical debility SNOMED: 372856364 Status: stable Status Narrative Discussed with Dr. Liu. Assessment/Plan Had BM yesterday, no blood noted per RN report okay for DC per GI standpoint defer GI procedures at this time stable H&H OB stool r/o GI bleed start bowel regime >> colace + miralax anusol HC prn ok to advance diet electrolyte correction H2B prophylaxis PT/OT evaluation fu labs Subjective Subjective no rectal bleeding noted Objective Last 24 Hour Vital Signs Date Time Temp Pulse Resp B/P (MAP) Pulse Ox O2 Delivery O2 Flow Rate FiO2 04/25/17 08:54 90 138/87 04/25/17 08:00 97.5 90 21 138/87 96 Room Air 04/25/17 04:00 97.7 70 23 132/83 100 04/25/17 00:00 97.8 76 20 141/83 95 04/24/17 20:00 96.3 78 23 120/60 100 04/24/17 16:00 98.0 93 20 119/59 96 Nasal Cannula 2.0 Intake and Output 04/24/17 04/25/17 19:00 07:00 Intake Total 360 ml 0 ml Balance 360 ml 0 ml Intake Oral 360 ml 0 ml # Voids 3 # Bowel Movements 2 Laboratory Tests Test 04/25/17 05:40 White Blood Count 4.1 K/UL (4.8-10.8) L Red Blood Count 3.86 M/UL (4.20-5.40) L Hemoglobin 12.0 G/DL (12.0-16.0) Hematocrit 36.5 % (37.0-47.0) L Mean Corpuscular Volume 95 FL (80-99) Mean Corpuscular Hemoglobin 31.1 PG (27.0-31.0) H Mean Corpuscular Hemoglobin Concent 32.9 G/DL (32.0-36.0) Red Cell Distribution Width 12.9 % (11.6-14.8) Platelet Count 251 K/UL (150-450) Mean Platelet Volume 6.2 FL (6.5-10.1) L Neutrophils (%) (Auto) 42.9 % (45.0-75.0) L Lymphocytes (%) (Auto) 39.9 % (20.0-45.0) Monocytes (%) (Auto) 10.3 % (1.0-10.0) H Eosinophils (%) (Auto) 5.7 % (0.0-3.0) H Basophils (%) (Auto) 1.3 % (0.0-2.0) Sodium Level 143 MMOL/L (136-145) Potassium Level 4.5 MMOL/L (3.5-5.1) Chloride Level 106 MMOL/L (98-107) Carbon Dioxide Level 31 MMOL/L (21-32) Anion Gap 6 mmol/L (5-15) Blood Urea Nitrogen 17 mg/dL (7-18) Creatinine 0.8 MG/DL (0.55-1.30) Estimat Glomerular Filtration Rate mL/min (>60) Glucose Level 79 MG/DL (74-106) Calcium Level 9.1 MG/DL (8.5-10.1) Height (Feet): 4 Height (Inches): 11.00 Weight (Pounds): 100 General Appearance: WD/WN, no apparent distress, alert, thin Cardiovascular: normal rate Respiratory/Chest: normal breath sounds, no respiratory distress Abdominal Exam: normal bowel sounds, non tender, soft Extremities: normal range of motion, non-tender Didi Huizar NNancy Apr 25, 2017 12:55
--- NOTE | 2017-04-25 15:55 | Nephrology Progress Note ---
Assessment/Plan Problem List: (1) Dehydration (2) Hypokalemia Assessment Low K resolved GI Bleed- H&H stable Malnutrition Dehydration HTN Plan Plan: DC planning stable from renal stand Subjective ROS Limited/Unobtainable: No Interval Events/Complaints seen at 9.30 am Objective Objective Last 24 Hour Vital Signs Date Time Temp Pulse Resp B/P (MAP) Pulse Ox O2 Delivery O2 Flow Rate FiO2 04/25/17 08:54 90 138/87 04/25/17 08:00 97.5 90 21 138/87 96 Room Air 04/25/17 04:00 97.7 70 23 132/83 100 04/25/17 00:00 97.8 76 20 141/83 95 04/24/17 20:00 96.3 78 23 120/60 100 04/24/17 16:00 98.0 93 20 119/59 96 Nasal Cannula 2.0 Intake and Output 04/24/17 04/25/17 19:00 07:00 Intake Total 360 ml 0 ml Balance 360 ml 0 ml Intake Oral 360 ml 0 ml # Voids 3 # Bowel Movements 2 Laboratory Tests 04/25/17 05:40: White Blood Count 4.1L, Red Blood Count 3.86L, Hemoglobin 12.0, Hematocrit 36.5L , Mean Corpuscular Volume 95, Mean Corpuscular Hemoglobin 31.1H, Mean Corpuscular Hemoglobin Concent 32.9, Red Cell Distribution Width 12.9, Platelet Count 251, Mean Platelet Volume 6.2L, Neutrophils (%) (Auto) 42.9L, Lymphocytes (%) (Auto) 39.9, Monocytes (%) (Auto) 10.3H, Eosinophils (%) (Auto) 5.7H, Basophils (%) (Auto) 1.3, Sodium Level 143, Potassium Level 4.5, Chloride Level 106, Carbon Dioxide Level 31, Anion Gap 6, Blood Urea Nitrogen 17, Creatinine 0.8, Estimat Glomerular Filtration Rate , Glucose Level 79, Calcium Level 9.1 Height (Feet): 4 Height (Inches): 11.00 Weight (Pounds): 100 General Appearance: no apparent distress Objective no change MARIANA YODER Apr 25, 2017 15:55
--- NOTE | 2017-04-28 10:01 | Discharge Summary ---
Discharge Summary Hospital Course Date of Admission Apr 21, 2017 at 11:40 Date of Discharge Apr 25, 2017 at 12:10 Admitting Diagnosis LOWER G.I.BLEED HPI Jess Dunn is a 86 year old female who was admitted on Apr 21, 2017 at 11: 40 for Lower Gastro Intestinal Bleed Hospital Course dc summary #[id number] Discharge Medications Continued Medications: Amlodipine Besylate* (Amlodipine Besylate*) 5 Mg Tablet 5 MG ORAL DAILY, TAB Bisacodyl (Dulcolax) 10 Mg Supp.rect 10 MG RC, SUPP Cranberry Fruit Concentrate (Cranberry) 450 Mg Capsule 450 MG PO, CAP Docusate Sodium* (Colace*) 100 Mg Capsule 100 MG ORAL DAILY, CAP Magnesium Hydroxide* (Milk Of Magnesia*) 400 Mg/5 Ml Oral.susp 30 ML ORAL DAILY, ML Memantine Hcl* (Namenda*) 10 Mg Tablet 10 MG ORAL DAILY, TAB Mirtazapine* (Remeron*) 15 Mg Tablet 7.5 MG ORAL BEDTIME, TAB [Cyproheptadine Hcl] () 4 MG TAB 4 MG ORAL THREE TIMES A DAY, #60 [donapezil hcl] () 5 TAB 5 MG PO DAILY Discharge Condition Upon Discharge: stable Discharge Disposition Patient was discharged to SNF Discharge Diagnoses: Discharge Instructions Discharge Instructions Special Instructions I have been assigned to complete a D/C Summary on this account. I was not involved in the patient management Theodora Bradshaw NP ([place]) Apr 28, 2017 10:01
--- NOTE | 2017-04-29 03:02 | Discharge Summary 2 SIG ---
DATE OF ADMISSION: 04/21/2017 DATE OF DISCHARGE: 04/25/2017 REASON FOR ADMISSION: 86-year-old female with past medical history significant for hypertension, COPD, dementia, schizophrenia, was noted in the long-term facility to have blood in stool for one day. The patient was sent to emergency room for evaluation. Upon evaluation, the patient denied fever, chills, abdominal pain. Hemoglobin and hematocrit were stable. No leukocytosis. Stable liver parameters and lipase. EKG revealed normal sinus rhythm. Troponin negative. The patient was admitted with diagnosis of lower GI bleeding for further management. HOSPITAL COURSE: The patient was admitted. Gastrointestinal consult was requested. Gastrointestinal specialist seen and carefully examined the patient. Since hemoglobin and hematocrit were stable, and no further evidence of bleeding , he deferred any gastrointestinal procedure at this time. Hemoglobin and hematocrit were closely monitored. No need for transfusion. Hemoglobin and Hematocrit remained at baseline and stable. Bowel regimen instituted. Diet was slowly advanced from clear liquid to as tolerated. Patient was initially on the IV fluids. Potassium was corrected. [employer] Worker followed. Nephrotoxics were avoided and electrolytes were closely monitored. The patient was on gastrointestinal prophylaxis. Blood pressure was managed with calcium channel wilfred and remained stable. The patient was started on Anusol suppository as needed. The patient initially on the IV fluids. Dehydration resolved. Pain management provided as needed. Supplemental oxygen and pulmonary toilet provided as needed to keep pulse oximetry above 92%. Psychiatric medication regimen was resumed. The patient was clinically improving. No further blood in the stool. Hemoglobin and hematocrit prior to discharge, hemoglobin -12 and hematocrit - 36.5. Stable electrolytes. Nutritional supplements provided to support nutritional status. The patient was stable for discharge back to long-term facility. FINAL DIAGNOSES: 1. Lower gastrointestinal bleeding, resolved. 2. Severe protein-calorie malnutrition. 3. Dehydration. 4. Hypokalemia. 5. Hypertension. DISCHARGE MEDICATIONS: See medication reconciliation list. DISCHARGE INSTRUCTIONS: The patient was discharged to long-term facility. Follow up with medical doctor at the facility. Kota Zamora M.D. I have been assigned to dictate discharge summary on this account and I was not involved in the patient's management. Theodora HerzogNgozi sosa DR: Josue JOB#: [id number] CC: MEREDITH
== END 2017-04-25 12:10 | DRG 377 ==
LOC: EDUNIT# 10:29 → EDBD 10:29 → EDBEDREQ 11:00 → EMR 11:25 → 4E 11:40 → EDBEDREQ 11:55
DX: K92.2 Gastrointestinal hemorrhage, unspecified (principal); E43 Unspecified severe protein-calorie malnutrition; E86.0 Dehydration; F03.90 Unspecified dementia, unspecified severity, without behavioral disturbance, psychotic disturbance, mood disturbance, and anxiety; J44.9 Chronic obstructive pulmonary disease, unspecified; R54 Age-related physical debility; R53.1 Weakness; I10 Essential (primary) hypertension; E87.6 Hypokalemia
CPT/HCPCS: 36415; 80048; 80053; 83690; 84484; 85025; 85610; 85730; 86850; 86900; 86901; 93005; 99285; J8499